=== PATIENT | male | born 1965 | race Caucasian/White ===

== ENCOUNTER 2023-06-15 22:59 | Emergency (ER) | payer BC, SELFPAY ==
[2023-06-15 23:06] VITALS: BP 142/90; PULSE 109; O2SAT 98
[2023-06-15 23:08] VITALS: BP 119/79; PULSE 107; RESP 16; TEMP 36.4; O2SAT 97; BMI 25.0
--- NOTE | 2023-06-15 23:11 | MHC.EDTECH ---
Pt arrived by EMS, security at bedside for exchange teller. Belongings in decon room. VS taken, pt placed on director of cardiac rehabilitation.
--- NOTE | 2023-06-15 23:15 | PC.NURSE ---
Pt ca&ox3, no signs of distress. Pt denies pain. Pt reports feeling better now. Plan of care ongoing.
--- NOTE | 2023-06-15 23:19 | ED.OVERDOSE ---
HPI - Overdose General Chief Complaint: Overdose Stated Complaint: OVERDOSE Time Seen by Provider: 06/15/23 23:11 Source: patient Mode of arrival: EMS Limitations: no limitations History of Present Illness HPI Narrative: 58 yo male here with c/o accidental overdose after getting high off 1/2 bag heroin. friend gave him 4mg narcan and he responded well. He is at baseline now has mild nausea. He states he hasn't used in a while. No SI, feels fine now does not want detox or MAT therapy. Declines addiction services. MD complaint: accidental overdose Onset (ago): minute(s) (prior to arrival ) Timing confirmed by: other (friend ) Context: Accidental Overdose: wanted to get high Associated symptoms: nausea/vomiting Treatments Prior to Arrival: narcan (4mg IN) Related Data Allergies Allergy/AdvReac Type Severity Reaction Status Date / Time Unable to Assess Allergy Verified 06/15/23 23:41 Review of Systems Review of Systems: Constitutional : No Fever, No Chills, Cardiovascular : No Chest Pain, No SOB Respiratory : No Dyspnea Gastrointestinal : No abdominal pain, pos nausea Musculoskeletal : No Joint Swelling Skin : No rash, no skin laceration Neuro : No Weakness, No Numbness Psych : No SI/HI, no depression All other systems reviewed and are negative [facility] Past Medical History Attestation statement: The following information was validated with the patient. Medical History Opiate abuse, episodic Social History Social History Alcohol intake: current Smoked in Last 30 Days: Yes Use of substances other than those prescribed or required for medical reasons: Yes Substance Use Type: Heroin Advance Directives: No Advance Directives Information Provided: No Physical Exam Vital Signs: Vital Signs: Last Vital Signs Temp 97.6 F 06/15/23 23:08 Pulse 96 06/15/23 23:40 Resp 16 06/15/23 23:40 BP 110/72 06/15/23 23:40 Pulse Ox 96 06/15/23 23:40 O2 Del Method Room Air 06/15/23 23:40 BMI result Body Mass Index 25.0 Appearance: Alert. Oriented X3. No acute distress. Eyes: Pupils equal, round and reactive to light. ENT: Pharynx normal. Neck: Normal inspection. Neck supple. CVS: tachycardic heart rate and rhythm. Pulses normal. Respiratory: No respiratory distress. Breath sounds normal. Abdomen: Soft and non-tender. Skin: Skin warm and dry. Normal skin color. Normal skin turgor. Extremities: No lower extremity edema. No calf ttp Neuro: Oriented X 3. No motor deficit. No sensory deficit. Course Course Course Narrative: observed x 2 hours no need for repeat narcan Medications Administered Discontinued Medications Generic Name Dose Route Start Last Admin Trade Name Enio PRN Reason Stop Dose Admin Naloxone HCl 8 mg 06/15/23 23:41 06/15/23 23:58 Naloxone Hcl Nasal Take Home 4 Mg [place] NOSTRILALT 06/15/23 23:42 8 mg ONCE ONE Administration Ondansetron HCl 4 mg 06/15/23 23:41 06/15/23 23:58 Ondansetron Odt 4 Mg Tab.Rapdis TRANSLINGU 06/15/23 23:42 4 mg ONCE ONE Administration Medical Decision Making Medical Decision Making [facility] Narrative: 58 yo male with opiate use disorder here with accidental overdose responded to 4mg narcan has mild nausea now. no SI, no head trauma reported. He declines any addiction services here. I have ordered narcan to go will observe for a couple of hours. if no need for repeat narcan will DC home Differential Diagnosis Differential Diagnoses: The differential diagnosis associated with the presentation includes accidental overdose, opiate use disorder Admission/Observation Consideration of admission/observation: Escalation of care including admission/observation considered no need for repeat narcan does not want addiction services Independent Historian Clinical information obtained from an independent historian. History obtained from or confirmed by: EMS Prescription Management I considered prescription management with: Other (narcan to take home) Discharge Plan Discharge Clinical Impression: Drug overdose Qualifiers: Encounter type: initial encounter Injury intent: accidental or unintentional Qualified Code(s): T50.901A - Poisoning by unspecified drugs, medicaments and biological substances, accidental (unintentional), initial encounter Patient Disposition: Home, Self-Care Instructions: Adult Overdose (ED), Opioid Use Disorder (ED) Additional Instructions: carry narcan with you at all times. we have given you a number to the comprehensive care program they can help with recovery services. please be careful. return for any fevers, cough, chest pain, severe headaches or any other concerns.
[2023-06-15 23:40] VITALS: BP 110/72; PULSE 96; RESP 16; O2SAT 96
--- NOTE | 2023-06-15 23:41 | PC.NURSE ---
Provider in with pt.
--- NOTE | 2023-06-15 23:41 | MHC.EDTECH ---
Hourly rounds and vitals completed, patient is resting comfortably at this time and call valerio within reach.
[2023-06-15] MEDS: Naloxone HCl Nasal TAKE HOME 4 MG SPRAY 8 MG NOSTRILALT (23:58)
[2023-06-15] MEDS: Ondansetron ODT 4 MG TAB.RAPDIS TRANSLINGU (23:58)
--- NOTE | 2023-06-15 23:59 | PC.NURSE ---
Pt medicated per dec. Pt given narcan to take home. Plan of care ongoing.
--- NOTE | 2023-06-16 01:12 | PC.NURSE ---
Pt being walked to [facility] to retrieve personal items by arts education teacher.
== END 2023-06-16 01:20 | disposition home or self-care (01) ==
PROVIDERS: Emergency Provider Emergency Medicine
DX: T40.1X1A Poisoning by heroin, accidental (unintentional), initial encounter (principal); F11.10 Opioid abuse, uncomplicated; Y92.9 Unspecified place or not applicable; R11.2 Nausea with vomiting, unspecified; R00.0 Tachycardia, unspecified
CPT/HCPCS: 99284